=== PATIENT | female | born 1950 | race Caucasian/White ===

== ENCOUNTER 2016-10-05 09:26 | Outpatient (CLI) | payer BC | END 2016-10-05 20:47 | disposition home or self-care (01) | LOC: SMA 09:26 | PROVIDERS: ATTEND Family Medicine | DX: Z12.31 Encounter for screening mammogram for malignant neoplasm of breast (principal) | CPT/HCPCS: G0202 ==

== ENCOUNTER 2018-08-17 10:25 | Outpatient (CLI) | payer BC | END 2018-08-17 19:55 | disposition home or self-care (01) | LOC: SMA 10:25 | PROVIDERS: ATTEND Family Medicine | DX: Z12.31 Encounter for screening mammogram for malignant neoplasm of breast (principal) | CPT/HCPCS: 77067 ==

== ENCOUNTER 2021-02-01 14:16 | Outpatient (CLI) | payer BC | END 2021-02-01 20:37 | disposition home or self-care (01) | LOC: SMA 14:16 | PROVIDERS: ATTEND Family Medicine | DX: Z12.31 Encounter for screening mammogram for malignant neoplasm of breast (principal); N64.89 Other specified disorders of breast | CPT/HCPCS: 77067 ==

== ENCOUNTER 2022-06-17 12:26 | Outpatient (CLI) | payer BC | END 2022-06-17 19:08 | disposition home or self-care (01) | LOC: SMA 12:26 | PROVIDERS: ATTEND Nurse Practitioner Family | DX: Z12.31 Encounter for screening mammogram for malignant neoplasm of breast (principal) | CPT/HCPCS: 77067 ==